=== PATIENT | female | born 2000 | race Caucasian/White ===

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

== ENCOUNTER 2023-07-06 16:59 | Emergency (ER) | payer BC ==
[2023-07-06 17:37] VITALS: BP 125/86; PULSE 84; RESP 16; TEMP 98.2; BMI 29.7
[2023-07-06] MEDS ORDERED: AMOX TR/POT CLAV 875MG/125MG TABLETS (FP) PO ONE (19:08)
[2023-07-06] MEDS ORDERED: AMOX TR/POT CLAV 875MG/125MG TABLETS (FP) ONE (19:11)
== END 2023-07-06 19:16 | disposition home or self-care (01) ==
LOC: FER 16:59
DX: S90.931A Unspecified superficial injury of right great toe, initial encounter (principal); S92.424A Nondisplaced fracture of distal phalanx of right great toe, initial encounter for closed fracture; W20.8XXA Other cause of strike by thrown, projected or falling object, initial encounter
CPT/HCPCS: 73630-TC-RT-FY; 99283-25